=== PATIENT | female | born 1980 | race Caucasian/White ===

== ENCOUNTER 2020-09-25 14:00 | Emergency (ER) | payer BC, OTHER ==
[~2020-09-25 14:00] MED LIST: CEFUROXIME500 MG PO; LEVAQUIN500 MG PO; PROVENTIL HFA6.7 GM INH
[2020-09-25 17:19] LABS: HEMOGLOBIN 15.1 gm/dl (12.3-15.3); RED BLOOD COUNT 5.25 M/UL (4.00-5.10); WHITE BLOOD COUNT 8.4 K/UL (4.5-11.0)
[2020-09-25 17:42] LABS: BUN/CREATININE RATIO 20 (0-10)
[2020-09-25] MEDS ORDERED: IPRAT-ALBUT 0.5-3 ML INH (21:40)
[2020-09-25] MEDS ORDERED: OMNICEF 300 MG300 MG PO (21:40)
== END 2020-09-25 22:00 | disposition home or self-care (01) ==
LOC: ER1 14:00
PROVIDERS: Family Medicine
DX: U07.1 COVID-19 (principal); J12.82 Pneumonia due to coronavirus disease 2019; I10 Essential (primary) hypertension; Z79.899 Other long term (current) drug therapy
CPT/HCPCS: 36600; 71045; 80053; 82550; 82553; 82803; 83605; 83874; 83880; 84484; 85025; 85379; 96365; 99285; J0696; U0002